=== PATIENT | female | born 1980 | race Caucasian/White ===

== ENCOUNTER → 2020-08-04 | Outpatient (CLI) | payer BC | LOC: CT 07:49 | DX: R93.89 Abnormal findings on diagnostic imaging of other specified body structures (principal); R91.1 Solitary pulmonary nodule; R91.8 Other nonspecific abnormal finding of lung field; R05 Cough | CPT/HCPCS: 71260; Q9963 ==

== ENCOUNTER → 2020-11-09 | Outpatient (CLI) | payer BC ==
[2020-11-09 09:39] LABS: HEMOGLOBIN 16.2 gm/dl (12.3-15.3); RED BLOOD COUNT 5.18 M/UL (4.00-5.10)
== END ==
LOC: LAB 08:55
PROVIDERS: Physician Assistant
DX: I10 Essential (primary) hypertension (principal)
CPT/HCPCS: 36415; 80048; 80061; 80076; 82607; 83036; 84443; 85025

== ENCOUNTER → 2020-12-21 | Outpatient (CLI) | payer BC | LOC: MAMO 11-30 15:30 | DX: Z12.31 Encounter for screening mammogram for malignant neoplasm of breast (principal) | CPT/HCPCS: 77063; 77067 ==

== ENCOUNTER → 2021-01-31 | Outpatient (CLI) | payer BC | LOC: EXRD 10:41 | DX: J45.30 Mild persistent asthma, uncomplicated (principal) | CPT/HCPCS: 36415; 82785; 94010; 95012 ==

== ENCOUNTER → 2021-05-09 | Outpatient (CLI) | payer BC ==
[2021-05-09 11:07] LABS: HEMOGLOBIN 16.3 gm/dl (12.3-15.3); RED BLOOD COUNT 5.22 M/UL (4.00-5.10); WHITE BLOOD COUNT 6.5 K/UL (4.5-11.0)
[2021-05-09 12:46] LABS: BUN/CREATININE RATIO 18 (0-10)
== END ==
LOC: LAB 09:48
PROVIDERS: Physician Assistant
DX: R73.01 Impaired fasting glucose (principal)
CPT/HCPCS: 36415; 80048; 80061; 80076; 83036; 84443; 85025

== ENCOUNTER → 2021-05-12 | Outpatient (CLI) | payer BC | LOC: LAB 14:14 | DX: N39.0 Urinary tract infection, site not specified (principal) | CPT/HCPCS: 87086 ==

== ENCOUNTER → 2022-01-26 | Outpatient (CLI) | payer BC ==
[2022-01-26 10:26] LABS: HEMOGLOBIN 15.6 gm/dl (12.3-15.3); RED BLOOD COUNT 5.03 M/UL (4.00-5.10); WHITE BLOOD COUNT 7.7 K/UL (4.5-11.0)
[2022-01-26 11:05] LABS: BUN/CREATININE RATIO 20 (0-10)
== END ==
LOC: LAB 09:53
PROVIDERS: Family Medicine
DX: I10 Essential (primary) hypertension (principal); E78.5 Hyperlipidemia, unspecified; E53.8 Deficiency of other specified B group vitamins; E55.9 Vitamin D deficiency, unspecified; R73.03 Prediabetes
CPT/HCPCS: 36415; 80053; 80061; 82607; 83036; 84443; 85025